=== PATIENT | male | born 1960 | race Hispanic/Latino ===

== ENCOUNTER 2016-09-26 16:53 | Emergency (ER) | payer OTHER ==
[~2016-09-26 16:53] MED LIST: LISI1TAB11 PO; PANT40TA2 PO; WARF2.5T82 PO; WARF5TAB7 PO; [UNRECOGNIZED DRUG - CODE] TP
[2016-09-26 16:56] VITALS: BP 178/108; PULSE 91; RESP 16; O2SAT 98
--- NOTE | 2016-09-26 18:32 | ED.REPORT ---
HPI-Back Pain 40 and Over Date of Service Sep 26, 2016 ED Provider: Tr Fagan MD Pt is a 56 y/o Kyrgyz speaking male anticoagulated on Warfarin w/ a hx of spinal stenosis about L4-L5 and L5-S1, DVT and PE, presenting to the ED with family c/o worsening of right low back pain with radiation from the buttock down the entire right leg onset 1 month ago. He c/o associated lower extremity weakness although he is able to walk. He reports his pain is caused by "disc problems" which he has had for 2 years. His last MRI was 2 years ago. Pt denies bowel or bladder incontinence, recent injury.He receives Ketorolac shots and has received one dose of steroid pills for the pain, but today the shot provided no relief. He has also been taking Baclofen and took 1 dose of hydrocodone a few days ago. His INR level was checked today and it was 2.09 and has never had problems with control. History is obtained via a american sign language interpreter. Dr. Kidd Nursing Notes Stated Complaint: LOWER BACK PAIN Chief Complaint: Back Pain or Injury Nursing Notes Reviewed: Yes ([employer], meds not reconciled, EMR indicates h/o warfarin use) Allergies: Coded Allergies: morphine (Unverified Allergy, Unknown, 03/07/16) niacin (Verified Allergy, Unknown, 02/17/14) Scheduled Gabapentin (Gabapentin) 300 Mg Capsule 300 MG PO HS Lisinopril / HCTZ 20-25 mg (Lisinopril / HCTZ 20-25 mg) 1 Each Tablet 1 EACH PO DAILY Methylprednisolone (Medrol) 21 Tab/Pkg Tablet 1 TAB PO UD Follow package instructions Pantoprazole DR (Protonix) 40 Mg Tablet 40 MG PO DAILY Warfarin Sodium (Warfarin Sodium) 2.5 Mg Tablet 2.5 MG PO 3 Scheduled PRN Warfarin Sodium (Warfarin Sodium) 5 Mg Tablet 5 MG PO PRN X4 oxyCODONE-Acetaminophen 5-325 mg (oxyCODONE-Acetaminophen 5-325 mg) 1 Each Tablet 1-2 TAB PO Q6H PRN PRN For Pain Miscellaneous Medications Tretinoin/Emol Cmb9/Skin Cln1 (Tretin-X 0.1% Combo Pack) 1 Each Combo..pkg 1 EACH TP General Time Seen by MD: 18:25 Chief Complaint Lumbar pain Hx Obtained From: Patient, Statistical Modeler Arrived By: Walk-in Sudden in Onset?: No Onset Occurred: More than a week ago... 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 Physical Exam Initial Vital Signs Vital Signs (First) Date Time Temp Pulse Resp B/P Pulse Ox O2 Delivery O2 Flow Rate FiO2 09/26/16 16:56 36.6 91 16 178/108 98 Room Air Initial VS: Reviewed, Vital signs abnormal (HTN) Head / Eyes: Atraumatic, Normocephalic, PERRL ENT: Mucous membranes moist, Conjunctiva normal, No scleral icterus Neck: Supple, Full range of motion Extremities: Vascular intact, Neuro intact, No swelling, No tenderness Skin: Warm, Dry, No cyanosis Psychiatric: Mood/affect normal, Behavior normal, Normal thought content General/Constitutional: Awake, Alert, Cooperative, Not toxic appearing Appearance / Presentation: Positive: In pain (moderate), Uncomfortable ( moderate) Respiratory / Chest: Breath sounds NL, Breath sounds = bilat, No respiratory distress, No rales, No rhonchi, No wheezing Cardiovascular: Heart rate NL, Regular rhythm, Heart sounds NL, No gallop, No murmurs, No rubs, Cap refill not delayed, Peripheral circulation NL Abdomen: Atraumatic, Soft, Non-tender, No guarding, No rebound, No distention Back: Atraumatic Positive straight leg raise on right Neurologic: Oriented X3, Speech NL, No sensory deficits Intact plantar and dorsiflexion of the toes Sensation intact Reports difficulty ambulating Interpretation & Diagnostics Interpretation & Diagnostics: MRI lumbar spine w/out contrast: IMPRESSION: 1. Grade 1 L5-S1 spondylolisthesis from bilateral L5 pars defects as before, causing severe bilateral foraminal stenoses. 2. Mild L3-L4 and L4-L5 central canal stenoses from disc and facet joint degeneration. Previously noted L3-L4 right central broad-based disc protrusion has decreased in size. 3. Mild L2-L3 and L3-L4, moderate L4-L5 foraminal stenoses from disc and facet joint degeneration are unchanged. Dictated by: Kenneth Krishnamurthy M.D. on 09/26/2016 at 21:31 Approved by: Kenneth Krishnamurthy M.D. on 09/26/2016 at 21:44 Lab Results Interpretation Result Diagram: 09/26/16190609/26/[id number] Test 09/26/16 19:07 White Blood Count 8.7th/mm3 (3.8-10.1) Red Blood Count 5.22mil/mm3 (4.40-5.80) Hemoglobin 15.8g/dL (13.8-17.2) Hematocrit 46.2% (41.0-50.0) Mean Corpuscular Volume 88.5fL (81-100) Mean Corpuscular Hemoglobin 30.3pg (27.0-35.0) Mean Corpuscular Hemoglobin Concent 34.2% (32.0-37.0) Red Cell Distribution Width 12.6% (12.3-15.4) Platelet Count 235bil/L (150-400) Neutrophils (%) (Auto) 89.8% (40-74) Lymphocytes (%) (Auto) 8.1% (14-46) Monocytes (%) (Auto) 1.5% (4-12) Eosinophils (%) (Auto) 0.1% (0-5) Basophils (%) (Auto) 0.2% (0-3) Prothrombin Time 27.7sec (8.1-12.5) Prothromb Time International Ratio 2.54ratio Sodium Level 140mEq/L (134-144) Potassium Level 3.9mEq/L (3.5-5.2) Chloride Level 101mEq/L (97-108) Carbon Dioxide Level 25mmol/L (18-29) Blood Urea Nitrogen 15mg/dL (6-24) Creatinine 0.74mg/dL (0.76-1.27) Estimat Glomerular Filtration Rate 117mL/min (>59) Glucose Level 144mg/dL (60-99) Calcium Level 9.3mg/dL (8.5-10.1) Total Bilirubin 0.6mg/dL (0.0-1.2) Aspartate Amino Transf (AST/SGOT) 27U/L (0-50) Alanine Aminotransferase (ALT/SGPT) 25U/L (0-44) Alkaline Phosphatase 63U/L (25-150) Total Protein 7.5g/dL (6.4-8.4) Albumin 4.2g/dL (3.4-5.0) Lab Results Interpretation: CBC normal CMP normal INR therapeutic Re-Eval/Medical Decision Med Decision/Clinical Course This is a 56-year-old male anticoagulant warfarin due to a history of DVT and PE on lifelong therapy presents with sudden worsening of right-sided sciatica that has been present for the past month. He does have an appointment with a "specialist" later next week. Acute worsening, he has had severe difficulty with ambulation secondary pain and weakness in the right leg. He denies bowel or bladder dysfunction. Denies trauma, fevers or chills. He is been seen by his PCP twice, including earlier today for which she received Toradol which report did not help. On exam his in moderate discomfort. He has a positive straight leg raise, and describes difficulty ambulating, but has intact plantar flexion and dorsiflexion. No anesthesia. However, given acute worsening, given anticoagulated static complicating things , at this point an MRI was obtained to evaluate for surgical pathology. He does have spondylolisthesis with resultant severe foraminal stenosis, but no acute emergent surgical process was identified. His INR is therapeutic, labs are normal. He received some Dilaudid with some improvement, but does not like the way makes him feel. We discussed options and her trialing a course of a Medrol Dosepak, and gabapentin. Apparently his been on gabapentin for some back pain in the past that helped. He is being started at 300 mg at bedtime. He is advised to keep the appointment with the specialist this coming week for further evaluation, is apparently he has been told that nonemergent surgical management may be indeed be warranted, presumably secondary to the spondylolisthesis. The patient is also given a prescription for some oxycodone for when necessary use. He is discharged in stable condition. Source of Hx: Old records Re-Evaluation/Progress : Time of Eval: 22:33 Patient Status: Condition improved, Moderate relief, Pain improved Re-Evaluation/Progress Note: Pt rechecked. Informed pt of plan for treatment. Pt understands and agrees with plan for treatment. F/U instructions and RTER warnings given. All questions addressed. Differential Diagnosis: Positive: Sciatica, Negative: Abdominal aortic aneurysm, Aortic dissection, Appendicitis, Cauda equina syndrome, Epidural abscess, Epidural hematoma, Herniated disk, Pyelonephritis, Spinal mass, Thoracic aortic dissect, Ureterolithiasis Counseled Regarding: Diagnosis, Lab results, Need for follow-up, When/why to return to ED Discharge & Departure Impression: Primary Impression: Low back pain Chronicity: acute Back pain laterality: right Sciatica presence: with sciatica Sciatica laterality: sciatica of right side Qualified Code: M54.41 - Lumbago with sciatica, right side Additional Impressions: Spinal stenosis Spinal region: lumbar Qualified Code: M48.06 - Spinal stenosis, lumbar region Spondylolisthesis Spinal region: lumbar Qualified Code: M43.16 - Spondylolisthesis, lumbar region Disposition: Home Discharge Condition All VS Reviewed: Yes Condition: Stable Patient Instructions: Sciatica (ED) Additional Instructions: 1. You have sciatica, an inflammation of the nerve from the back that runs down the leg. 2. You had an MRI which did not reveal a disc herniation or an acute surgical compression of the nerve. 3. You do have a narrowing of the cannals through which the nerves pass (" spinal stenosis") which does make it easier for the nerve to be irritated at time. This is caused by a condition called "spondylolisthesis". 4. No heavy lifting, other activities as tolerated. 5. Keep your appointment with the specialist this coming . 6. I recommend trying a short course of steroids. Take the Medrol dose pack as directed on the package. 7. Start gabapentin at 300mg at bedtime. 8. If needed for severe pain you can take oxycodone/APAP 5/325 1-2 tabs up to every 6 hours. Note: This medication does contain a narcotic and causes drowsiness. No driving for at least 4 hours after taking. Try to use sparingly. Referrals: Brandon Rod MD (PCP) Scribe Attestation Portions of this note were transcribed by Cody Hannon. I, Dr. Fagan personally performed the history, physical exam and medical decision-making; I reviewed and confirmed the accuracy of the information in the transcribed note. Signed by Juan Francisco Donato, 09/26/16 - 1900 copies to: Brandon Rod MD, Matthew F MD Sep 26, 2016 18:32 CODY HANNON Sep 26, 2016 18:39
[2016-09-26] MEDS ORDERED: Ondansetron 2 mg/mL 2 mL Inj IVPUSH ONE (18:45)
[2016-09-26] MEDS ORDERED: HYDROmorphone 0.5 mg/0.5 mL iSecure Syringe IVPUSH PRN (18:45)
[2016-09-26 19:24] LABS: BASOPHILS % (AUTO) 0.2 % (0-3); EOSINOPHILS % (AUTO) 0.1 % (0-5); MONOCYTES % (AUTO) 1.5 % (4-12); Mean Corpuscular Hemoglobin 30.3 pg (27.0-35.0); Mean Corpuscular Volume 88.5 fL (81-100); NEUTROPHILS % (AUTO) 89.8 % (40-74); Platelet Count 235 bil/L (150-400)
[2016-09-26 19:39] LABS: INR 2.54 ratio
[2016-09-26] MEDS ORDERED: _oxyCODONE/APAP 5-325 mg Tablet PO PRN (21:40)
--- NOTE | 2016-09-26 21:45 | DRSVH ---
PROCEDURE: MRI LUMBAR SPINE WITHOUT CONTRAST ([id number]) INDICATIONS: 56 year-old anticoagulated male with right lower extremity sciatica and weakness. TECHNIQUE: Noncontrast sagittal T1 spin echo and T2 fast echo, sagittal STIR, axial T1 and T2 fast spin echo thr ough the lumbar spine. In cases with scoliosis, additional coronal T2 fast spin echo may be performe d. COMPARISON: [facility], MR, LUMBAR SPINE W/O CONTRAST, 09/21/2013, 17:36. FINDINGS: Image quality: Excellent. Alignment and Curvature: 10 mm of L5-S1 spondylolisthesis are again noted, secondary to bilateral L5 pars defects. Coronal images demonstrate mild lumbar spine dextroscoliosis. Bone Marrow: Marrow is of normal overall signal. No vertebral body compression fractures. L5-S1 fat ty endplate degenerative change is again noted. Spinal Cord: Conus medullaris terminates at the T12 level. Visualized cord demonstrates normal sign al and size. Paraspinous Soft Tissues: No paravertebral masses. L1-L2: Normal appearance. L2-L3: Disc bulge and facet joint arthropathy again cause mild bilateral foraminal stenoses. No centr al canal stenosis. L3-L4: Disc bulge and facet joint arthropathy again cause mild central canal stenosis and mild bilate ral foraminal stenoses. Superimposed right central disc protrusion has decreased in size. L4-L5: Disc bulge and facet joint arthropathy again cause mild central canal stenosis and moderate bi lateral foraminal stenoses. L5-S1: Disc bulge, disc uncovering from spondylolisthesis, and facet joint arthropathy again cause se dereje bilateral foraminal stenoses. No central canal stenosis. IMPRESSION: 1. Grade 1 L5-S1 spondylolisthesis from bilateral L5 pars defects as before, causing severe bilateral foraminal stenoses. 2. Mild L3-L4 and L4-L5 central canal stenoses from disc and facet joint degeneration. Previously not ed L3-L4 right central broad-based disc protrusion has decreased in size. 3. Mild L2-L3 and L3-L4, moderate L4-L5 foraminal stenoses from disc and facet joint degeneration are unchanged. Dictated by: Kenneth Krishnamurthy M.D. on 09/26/2016 at 21:31 Approved by: Kenneth Krishnamurthy M.D. on 09/26/2016 at 21:44
[2016-09-26] MEDS ORDERED: MTH4T PO (22:51)
[2016-09-26] MEDS ORDERED: OXYC1TAB24 PO (22:51)
[2016-09-26] MEDS ORDERED: GABA-502 PO (22:51)
== END 2016-09-26 23:27 | disposition home or self-care (01) ==
LOC: SED 16:53
DX: M54.41 Lumbago with sciatica, right side (principal); M48.06 Spinal stenosis, lumbar region; M43.16 Spondylolisthesis, lumbar region; R53.1 Weakness; I10 Essential (primary) hypertension; Z86.718 Personal history of other venous thrombosis and embolism; Z79.01 Long term (current) use of anticoagulants; Z86.711 Personal history of pulmonary embolism; Z87.891 Personal history of nicotine dependence; Z88.5 Allergy status to narcotic agent; Z88.3 Allergy status to other anti-infective agents
CPT/HCPCS: 36415; 72148; 80053; 85025; 85610; 96374; 96375; 99285; J1170; J2405